=== PATIENT | female | born 1985 | race Caucasian/White ===

== ENCOUNTER 2017-12-13 11:16 | Emergency (ER) | payer OTHER ==
[~2017-12-13] VITALS: Ht 157.5 cm; Wt 53.2 kg
[~2017-12-13 11:16] MED LIST: ADVAIR 500/501 DISK IH; NOHOMEMEDS; PROVENTIL,200 INHALA IH; SERTRALINE HCL100 MG PO; SUBOXON PO; TRAZODONE HCL100 MG PO; XANAX1 MG PO
[2017-12-13 13:06] LABS: HEMATOCRIT 24.6 % (36.0-46.0); HEMOGLOBIN 8.2 G/DL (11.9-15.5); MCH 28.8 PG (29.0-34.0); MCHC 33.3 G/DL (30.0-36.0); MCV 86.3 FL (83-99); PLATELET COUNT 382 K/uL (156-360); RBC DIS.WIDTH-CV 12.2 % (11.8-14.6); RBC DIS.WIDTH-SD 38.9 % (39-53); RED BLOOD COUNT 2.85 M/uL (3.80-5.20); WHITE BLOOD COUNT 8.1 K/uL (4.1-10.2)
[2017-12-13 13:14] LABS: CHLORIDE 94 mEq/L (99-109); POTASSIUM 2.7 mEq/L (3.7-5.4); SODIUM 137 mEq/L (136-147)
[2017-12-13 13:15] LABS: GLUCOSE 99 mg/dL (70-99)
[2017-12-13 13:19] LABS: CREATININE 0.5 mg/dL (0.6-1.3); GFR ESTIMATE (CALCULATED) > 59 mL/min/
[2017-12-13 13:20] LABS: UREA NITROGEN (BUN) 7 mg/dL (9-23)
[2017-12-13] MEDS ORDERED: DOXYCYCLINE MO100 MG PO (15:34)
[2017-12-13] MEDS ORDERED: K-DUR20 MEQ PO (15:34)
[2017-12-13 16:48] VITALS: BP 109/62
== END 2017-12-13 16:56 | disposition home or self-care (01) ==
LOC: EME 11:16
DX: J18.9 Pneumonia, unspecified organism (principal); D64.9 Anemia, unspecified; E87.6 Hypokalemia; Z87.891 Personal history of nicotine dependence
CPT/HCPCS: 80048; 85027; 93005; 99281; 99285; J0456; J0696